=== PATIENT | male | born 1945 | race Caucasian/White ===

== ENCOUNTER 2017-05-30 21:41 | Emergency (ER) | payer OTHER ==
[~2017-05-30] VITALS: Ht 170.2 cm; Wt 81.6 kg
[2017-05-30 21:58] VITALS: BP 145/82
== END 2017-05-31 01:44 | disposition home or self-care (01) ==
LOC: ED 21:41
DX: N23 Unspecified renal colic (principal); K59.00 Constipation, unspecified
CPT/HCPCS: J2270; Q0162

== ENCOUNTER 2017-06-29 19:13 | Inpatient (IN) | payer OTHER ==
[~2017-06-29] VITALS: Ht 165.1 cm; Wt 80.0 kg
[2017-06-29 20:35] LABS: BASOPHIL % 0.5 % (0-2); PLATELET COUNT 250 x10^3mcL (130-400); RED CELL DISTRIBUTION WIDTH 13.7 % (11.5-14.5)
[2017-06-29 20:40] LABS: CARBON DIOXIDE 30.5 mmol/L (21-32); CREATININE SERUM 1.4 mg/dL (0.7-1.3)
[2017-06-29 20:50] LABS: ALBUMIN 3.9 g/dL (3.4-5.0); BILIRUBIN TOTAL 0.32 mg/dL (0.20-1.00)
[2017-06-29 20:55] LABS: microscopic required? NO
[2017-06-29 21:04] LABS: UA SPECIFIC GRAVITY 1.015 (1.005-1.035); urine erythrocyte NEGATIVE (NEGATIVE)
[2017-06-29 22:36] VITALS: BP 155/81
[2017-06-29 23:09] LABS: CHOLESTEROL/HDL RATIO 5.3; MAGNESIUM 2.4 mg/dL (1.8-2.4); PHOSPHOROUS 2.8 mg/dL (2.5-4.9)
[2017-06-29 23:17] LABS: FREE T4 1.1 ng/dL (0.76-1.46); FREE THYROXINE INDEX 2.6 ug/dL (1.4-4.5); T4(THYROXINE) 6.8 ug/dL (4.7-13.3)
[2017-06-30 00:57] LABS: T3 TOTAL 0.86 ng/mL
[2017-06-30 06:21] VITALS: BP 147/93
[2017-06-30 06:44] LABS: BASOPHIL % 0.4 % (0-2); PLATELET COUNT 225 x10^3mcL (130-400); RED CELL DISTRIBUTION WIDTH 13.8 % (11.5-14.5)
[2017-06-30 07:03] LABS: CALCIUM 8.6 mg/dL (8.5-10.1); CARBON DIOXIDE 25.4 mmol/L (21-32); CHLORIDE SERUM 104 mmol/L (98-107); CREATININE SERUM 1.1 mg/dL (0.7-1.3); GFR1 > 60 mL/min; GLUCOSE SERUM 96 mg/dL (74-106); POTASSIUM SERUM 3.6 mmol/L (3.5-5.1); SODIUM SERUM 137 mmol/L (136-145)
[2017-06-30 08:44] VITALS: BP 151/90
[2017-06-30 14:10] VITALS: BP 165/99
[2017-06-30 18:43] VITALS: BP 143/90
[2017-06-30 21:28] VITALS: BP 151/85
[2017-07-01 05:43] VITALS: BP 117/73
[2017-07-01 06:12] LABS: BASOPHIL % 0.5 % (0-2); PLATELET COUNT 225 x10^3mcL (130-400); RED CELL DISTRIBUTION WIDTH 13.8 % (11.5-14.5)
[2017-07-01 06:39] LABS: CALCIUM 8.2 mg/dL (8.5-10.1); CARBON DIOXIDE 26.7 mmol/L (21-32); CHLORIDE SERUM 108 mmol/L (98-107); CREATININE SERUM 1.2 mg/dL (0.7-1.3); GFR1 > 60 mL/min; GLUCOSE SERUM 86 mg/dL (74-106); MAGNESIUM 2.2 mg/dL (1.8-2.4); PHOSPHOROUS 3.3 mg/dL (2.5-4.9); POTASSIUM SERUM 4.2 mmol/L (3.5-5.1); SODIUM SERUM 141 mmol/L (136-145)
[2017-07-01 09:03] VITALS: BP 134/82; BP 137/62
[2017-07-01 14:01] VITALS: BP 139/64
[2017-07-01 17:24] VITALS: BP 157/96
[2017-07-01 21:53] VITALS: BP 157/92
[2017-07-02 05:46] VITALS: BP 153/91
[2017-07-02 05:56] LABS: BASOPHIL % 0.3 % (0-2); PLATELET COUNT 214 x10^3mcL (130-400); RED CELL DISTRIBUTION WIDTH 13.1 % (11.5-14.5)
[2017-07-02 06:23] LABS: CALCIUM 8.5 mg/dL (8.5-10.1); CARBON DIOXIDE 25.6 mmol/L (21-32); CHLORIDE SERUM 105 mmol/L (98-107); CREATININE SERUM 1.1 mg/dL (0.7-1.3); GFR1 > 60 mL/min; GLUCOSE SERUM 120 mg/dL (74-106); PHOSPHOROUS 3.3 mg/dL (2.5-4.9); SODIUM SERUM 138 mmol/L (136-145)
[2017-07-02 08:13] VITALS: BP 150/69; BP 152/96
[2017-07-02 09:50] VITALS: BP 152/96
== END 2017-07-02 11:22 | disposition home or self-care (01) | DRG 640 ==
LOC: ED 19:13 → DU 21:32 → MU 07-01 07:39
PROVIDERS: Emergency Medicine; ADMIT Family Medicine Sports Medicine
DX: E86.0 Dehydration (principal); N17.0 Acute kidney failure with tubular necrosis; N13.30 Unspecified hydronephrosis; I10 Essential (primary) hypertension; K59.00 Constipation, unspecified; G89.29 Other chronic pain; M54.5 Low back pain; C61 Malignant neoplasm of prostate; E78.5 Hyperlipidemia, unspecified; E66.3 Overweight; Z92.3 Personal history of irradiation; Z68.29 Body mass index [BMI] 29.0-29.9, adult
CPT/HCPCS: 82962; 83880; 84439; J0360; J1885; J2270; J7030; J8597; Q0092